=== PATIENT | male | born 1990 | race Caucasian/White ===

== ENCOUNTER 2017-04-08 10:40 | Emergency (ER) | payer BC ==
--- NOTE | 2017-04-08 11:24 | EDM.PDOC ---
ED HPI GENERAL MEDICAL PROBLEM - General Chief Complaint: Eye Problems Stated Complaint: IRRATED EYE Time Seen by Provider: 04/08/17 11:07 Source of Information: Reports: Patient History Limitations: Reports: No Limitations - History of Present Illness INITIAL COMMENTS - FREE TEXT/NARRATIVE: Presents reporting a infection in his medial left lower eyelid. He states it's been irritated for about a week but now it is swollen and tender. No vision problems left eye Pain Score (Numeric/FACES): 5 - Related Data Allergies Allergy/AdvReac Type Severity Reaction Status Date / Time Sulfa (Sulfonamide Allergy Cannot Verified 04/08/17 10:48 Antibiotics) Remember Home Meds: Home Meds Albuterol [Take Home: Albuterol 6.7 GM, 1 INH Pack] 0 packet INH 04/08/17 [ History] Fexofenadine [Katie] 0 mg PO DAILY 04/08/17 [History] Candido/Polymyx B Sulf/Dexameth [Lehnoh-Idnhv-Cluohijm Eye Drop] 2 drop OP QID #1 bottle 04/08/17 [Rx] atoMOXetine HCl [Strattera] 60 mg PO DAILY 04/08/17 [History] Past Medical History - Past Health History Medical/Surgical History: Denies Medical/Surgical History Respiratory History: Reports: Asthma Psychiatric History: Reports: ADHD Social & Family History - Family History Family Medical History: Noncontributory - Tobacco Use Smoking Status *Q: Never Smoker - Recreational Drug Use Recreational Drug Use: No ED ROS GENERAL - Review of Systems Review Of Systems: ROS reveals no pertinent complaints other than HPI. ED EXAM GENERAL W FULL EYE - Physical Exam Exam: See Below Exam Limited By: No Limitations General Appearance: Alert Eye Exam: Bilateral Eye: EOMI, PERRL Visual Acuity (R) 20/: 20 Visual Acuity (L) 20/: 40 With Correction: No Eyelids: Left: Stye (medial) Conjunctiva & Sclera: Bilateral: Normal Appearance Cornea Exam: Bilateral: Normal Appearance Extraocular Movements: Bilateral: Intact Pupils: Normal Accommodation Pupillary Size: Bilateral: 4 mm Pupillary Reaction: Bilateral: Brisk Ears: Normal External Exam Nose: Normal Inspection Throat/Mouth: Normal Inspection Head: Atraumatic, Normocephalic Neck: Normal Inspection Respiratory/Chest: No Respiratory Distress Cardiovascular: Normal Peripheral Pulses GI/Abdominal: Soft Neurological: Alert, Oriented Psychiatric: Normal Affect, Normal Mood Skin Exam: Warm, Dry, Intact, Normal Color, No Rash Lymphatic: No Adenopathy Course - Vital Signs Last Recorded V/S: Last Vital Signs Temp 36.6 C 04/08/17 10:52 Pulse 90 04/08/17 10:52 Resp 18 04/08/17 10:52 BP 129/75 04/08/17 10:52 Pulse Ox 96 04/08/17 10:52 Departure - Departure Time of Disposition: 11:22 Disposition: Home, Self-Care 01 Condition: Good Clinical Impression: Hordeolum externum left lower eyelid - Discharge Information Referrals: PCP,None [Primary Care Provider] - [facility] [Outside] Forms: ED Department Discharge Additional Instructions: 1. Warm moist compresses every 4 hours while awake. 2. Eye drops to left eye--2 drops every 4 hours while awake. There is no conclusive evidence that antibiotic drops help the condition. 3. Follow up with ophthalmology if symptoms worsen or do not improve as expected.
== END 2017-04-08 11:30 | disposition home or self-care (01) ==
LOC: MW.ED 10:40
CPT/HCPCS: 99283

== ENCOUNTER 2017-04-09 05:39 | Emergency (ER) | payer BC ==
[2017-04-09] MEDS ORDERED: Sodium Chloride 0.9% 2.5 ML Syringe FLUSH PRN (05:51)
[2017-04-09] MEDS ORDERED: Pantoprazole 40 MG Vial IVPUSH ONE (05:51)
[2017-04-09] MEDS ORDERED: Ondansetron 4 MG/2 ML SDV IVPUSH ONE (05:51)
[2017-04-09] MEDS ORDERED: Sodium Chloride 0.9% 10 ML Syringe FLUSH PRN (05:51)
[2017-04-09] MEDS ORDERED: Alum Hydrox/Mag Hydrox/Simeth 15 ML, Metoclopramide 5 MG, Lidocaine 2% 5 ML PO ONE ×3 (05:51)
[2017-04-09] MEDS ORDERED: Sodium Chloride 0.9% 1,000 ML IV ONE (05:51)
--- NOTE | 2017-04-09 05:52 | EDM.PDOC ---
ED HPI GENERAL MEDICAL PROBLEM - General Chief Complaint: Abdominal Pain Stated Complaint: ABDOMINAL PAIN Time Seen by Provider: 04/09/17 05:46 - History of Present Illness INITIAL COMMENTS - FREE TEXT/NARRATIVE: HISTORY AND PHYSICAL: History of present illness: The patient is a healthy 26-year-old male with a history of ADHD who was seen here yesterday morning with complaints of a stye to his left eye for which he was treated and represents via EMS with epigastric pain that started at 3 AM. The patient states that last evening he felt fine and ate his normal meals and had no issues with pain prior to going to sleep and then became restless around 3 AM because of the discomfort which he describes in the epigastric area and radiating down the middle of his abdomen to his belly button. The patient did not localize right or left and it was associated with some nausea but no vomiting and no diarrhea. The patient says that at 4 AM it worsened and he called the ambulance to come here. He did not try any duup-ejz-hoznugc antacids but did try Advil PM. Patient a bowel movement yesterday that was normal without black or blood and he has not had diarrhea or constipation. He has no GI cardiac or pulmonary history and has no surgical history. The patient denies any history of food intolerance and did not eat anything new last evening. Please note that the pain does not radiate to his chest, his flanks or his back and it is not associated with diaphoresis shortness of breath or chest pain. Review of systems: As per history of present illness and below otherwise all systems reviewed and negative. Past medical history: As per history of present illness and as reviewed below otherwise noncontributory. Surgical history: As per history of present illness and as reviewed below otherwise noncontributory. Social history: No reported history of drug or alcohol abuse. Family history: As per history of present illness and as reviewed below otherwise noncontributory. Physical exam: Gen.: Well-developed well-nourished male who is nontoxic and speaking clearly in the ED. Vital signs of been reviewed by me. HEENT: Atraumatic, normocephalic, pupils reactive, patient has a visible hordeolum at the right lower eyelid surrounding erythema but no gross swelling is appreciated, negative for conjunctival pallor or scleral icterus, mucous membranes moist, throat clear, neck supple, nontender, trachea midline. Lungs: Clear to auscultation, breath sounds equal bilaterally, chest nontender. Heart: S1S2, regular, negative for clicks, rubs, or JVD. Abdomen: Soft, nondistended, mildly tender on deep palpation in the epigastrium and just below in the midline which does not localize right or left, bowel sounds are normoactive and there is no tympany on percussion, Negative for masses or hepatosplenomegaly. Negative for costovertebral tenderness. Pelvis: Stable nontender. Genitourinary: Deferred. Rectal: Deferred. Extremities: Atraumatic, negative for cords or calf pain. Neurovascular unremarkable. Neuro: Awake, alert, oriented. Cranial nerves II through XII unremarkable. Cerebellum unremarkable. Motor and sensory unremarkable throughout. Exam nonfocal. Diagnostics: EKG CBC CMP amylase lipase abdominal x-rays Therapeutics: IV fluids protonic Zofran GI cocktail Patient and are aware of testing care results and care plan for home. Patient is currently pain-free and I have strongly advised avoidance of fatty foods fast foods and spicy foods alcohol and caffeine. The patient's tells me that they're from [place] and they're going home today so they will follow-up with their provider in [place] and I will still give him referral information here. I cautioned on reasons to return to the ED Impression: Epigastric abdominal pain stable Definitive disposition and diagnosis as appropriate pending reevaluation and review of above. abdominal Pain Score (Numeric/FACES): 0 - Related Data Allergies Allergy/AdvReac Type Severity Reaction Status Date / Time Sulfa (Sulfonamide Allergy Cannot Verified 04/08/17 10:48 Antibiotics) Remember Home Meds: Home Meds Albuterol [Take Home: Albuterol 6.7 GM, 1 INH Pack] 0 packet INH ASDIRECTED [History] Fexofenadine [Katie] 0 mg PO DAILY 04/08/17 [History] Candido/Polymyx B Sulf/Dexameth [Qdxqjy-Udtrl-Yovzrcxa Eye Drop] 2 drop OP QID #1 bottle 04/08/17 [Rx] atoMOXetine HCl [Strattera] 60 mg PO DAILY 04/08/17 [History] Fluticasone/Salmeterol [Advair 250-50 Diskus] 1 each IH 04/09/17 [History] Past Medical History - Past Health History Medical/Surgical History: Denies Medical/Surgical History Respiratory History: Reports: Asthma Psychiatric History: Reports: ADHD Social & Family History - Family History Family Medical History: Noncontributory - Tobacco Use Smoking Status *Q: Never Smoker - Recreational Drug Use Recreational Drug Use: No ED ROS GENERAL - Review of Systems Review Of Systems: ROS reveals no pertinent complaints other than HPI. ED EXAM, GENERAL - Physical Exam Exam: See Below (See dictation) Course - Vital Signs Last Recorded V/S: Last Vital Signs Temp 36.1 C 04/09/17 05:49 Pulse 64 04/09/17 06:26 Resp 17 04/09/17 06:26 BP 130/73 04/09/17 06:26 Pulse Ox 96 04/09/17 06:26 - Orders/Labs/Meds Orders: Active Orders 24 hr Category Date Time Status EKG Documentation Completion [RC] STAT Care 04/09/17 05:52 Active Abdomen 2V AP Flat Upright [CR] Stat Exams 04/09/17 05:55 Taken Sodium Chloride 0.9% [Normal Saline] 1,000 ml Med 04/09/17 05:51 Active IV STAT Sodium Chloride 0.9% [Saline Flush] Med 04/09/17 05:51 Active 10 ml FLUSH ASDIRECTED PRN Sodium Chloride 0.9% [Saline Flush] Med 04/09/17 05:51 Active 2.5 ml FLUSH ASDIRECTED PRN Saline Lock Insert [OM.PC] Stat Oth 04/09/17 05:51 Ordered Medication Orders Sodium Chloride (Normal Saline) 1,000 mls @ 999 mls/hr IV STAT ONE Stop: 04/09/17 06:51 Last Admin: 04/09/17 05:59 Dose: 999 mls/hr Sodium Chloride (Saline Flush) 10 ml FLUSH ASDIRECTED PRN PRN Reason: Keep Vein Open Last Admin: 04/09/17 06:03 Dose: 10 ml Sodium Chloride (Saline Flush) 2.5 ml FLUSH ASDIRECTED PRN PRN Reason: Keep Vein Open Last Admin: 04/09/17 06:02 Dose: 2.5 ml Labs: Laboratory Tests 04/09/17 04/09/17 Range/Units 05:58 05:58 WBC 7.34 (4.0-11.0) K/uL RBC 4.95 (4.50-5.90) M/uL Hgb 15.0 (13.0-17.0) g/dL Hct 42.6 (38.0-50.0) % MCV 86.1 (80.0-98.0) fL MCH 30.3 (27.0-32.0) pg MCHC 35.2 (31.0-37.0) g/dL RDW Std Deviation 41.2 (28.0-62.0) fl RDW Coeff of Mita 13 (11.0-15.0) % Plt Count 191 (150-400) K/uL MPV 8.90 (7.40-12.00) fL Neut % (Auto) 44.1 L (48.0-80.0) % Lymph % (Auto) 42.1 H (16.0-40.0) % [place] % (Auto) 8.7 (0.0-15.0) % Eos % (Auto) 4.4 (0.0-7.0) % Baso % (Auto) 0.7 (0.0-1.5) % Neut # (Auto) 3.2 (1.4-5.7) K/uL Lymph # (Auto) 3.1 H (0.6-2.4) K/uL [place] # (Auto) 0.6 (0.0-0.8) K/uL Eos # (Auto) 0.3 (0.0-0.7) K/uL Baso # (Auto) 0.1 (0.0-0.1) K/uL Nucleated RBC % 0.0 /100WBC Nucleated RBCs # 0 K/uL Sodium 137 (136-146) mmol/L Potassium 3.9 (3.5-5.1) mmol/L Chloride 106 (98-110) mmol/L Carbon Dioxide 25 (21-31) mmol/L BUN 15 (6.0-23.0) mg/dL Creatinine 1.0 (0.6-1.5) mg/dL Est Cr Clr Drug Dosing 131.35 mL/min Estimated GFR (MDRD) > 60.0 ml/min Glucose 101 (60-110) mg/dL Calcium 9.0 (8.8-10.8) mg/dL Total Bilirubin 0.5 (0.1-1.5) mg/dL AST 14 (5-40) IU/L ALT 16 (8-54) IU/L Alkaline Phosphatase 47 (40-150) Total Protein 7.3 (6.0-8.0) g/dL Albumin 4.3 (3.5-5.0) g/dL Globulin 3.0 (2.0-3.5) g/dL Albumin/Globulin Ratio 1.4 (1.3-2.8) Amylase 30 (10-90) U/L Lipase 32 (7-80) U/L Meds: Medications Generic Name Dose Route Start Last Admin Trade Name Freq PRN Reason Stop Dose Admin Sodium Chloride 1,000 mls @ 999 mls/hr 04/09/17 05:51 04/09/17 05:59 Normal Saline IV 04/09/17 06:51 999 mls/hr STAT ONE Administration Sodium Chloride 10 ml 04/09/17 05:51 04/09/17 06:03 Saline Flush FLUSH 10 ml ASDIRECTED PRN Administration Keep Vein Open Sodium Chloride 2.5 ml 04/09/17 05:51 04/09/17 06:02 Saline Flush FLUSH 2.5 ml ASDIRECTED PRN Administration Keep Vein Open Discontinued Medications Generic Name Dose Route Start Last Admin Trade Name Freq PRN Reason Stop Dose Admin Al Hydroxide/Mg Hydroxide 15 0 ml 04/09/17 05:51 04/09/17 06:06 ml/ Metoclopramide HCl 5 mg/ PO 04/09/17 05:52 25 each Lidocaine HCl 5 ml ONETIME ONE Administration Ondansetron HCl 4 mg 04/09/17 05:51 04/09/17 06:01 Zofran IVPUSH 04/09/17 05:52 4 mg ONETIME ONE Administration Pantoprazole Sodium 40 mg 04/09/17 05:51 04/09/17 06:03 Protonix Iv IVPUSH 04/09/17 05:52 40 mg .BOLUS ONE Administration Departure - Departure Time of Disposition: 06:47 Disposition: Home, Self-Care 01 Condition: Good Clinical Impression: Epigastric abdominal pain - Discharge Information Referrals: PCP,None [Primary Care Provider] - Forms: ED Department Discharge Additional Instructions: The following information is given to patients seen in the emergency department who are being discharged to home. This information is to outline your options for follow-up care. We provide all patients seen in our emergency department with a follow-up referral. The need for follow-up, as well as the timing and circumstances, are variable depending upon the specifics of your emergency department visit. If you don't have a primary care physician on staff, we will provide you with a referral. We always advise you to contact your personal physician following an emergency department visit to inform them of the circumstance of the visit and for follow-up with them and/or the need for any referrals to a consulting specialist. The emergency department will also refer you to a specialist when appropriate. This referral assures that you have the opportunity for followup care with a specialist. All of these measure are taken in an effort to provide you with optimal care, which includes your followup. Under all circumstances we always encourage you to contact your private physician who remains a resource for coordinating your care. When calling for followup care, please make the office aware that this follow-up is from your recent emergency room visit. If for any reason you are refused follow-up, please contact the [facility] emergency department at and ask to speak to the emergency department charge nurse. [facility] Primary care- Internal Medicine and Family [facility] [address] [place] [address] [id number] [facility] Specialty Care-General Surgery Professional Building [address] [place] [id number] Please try to avoid spicy foods fatty foods fast foods and junk foods as well as caffeinated products and alcohol. Please take Prevacid as directed. Please call and follow-up with one of our clinic physicians for further care and evaluation. Return to ER as needed and as discussed. You may also add over-the- counter Mylanta to assist with any discomfort that you have before or after eating. - My Orders Last 24 Hours: My Active Orders 04/09/17 05:51 Sodium Chloride 0.9% [Normal Saline] 1,000 ml IV STAT Sodium Chloride 0.9% [Saline Flush] 10 ml FLUSH ASDIRECTED PRN Sodium Chloride 0.9% [Saline Flush] 2.5 ml FLUSH ASDIRECTED PRN Saline Lock Insert [OM.PC] Stat 04/09/17 05:52 EKG Documentation Completion [RC] STAT 04/09/17 05:55 Abdomen 2V AP Flat Upright [CR] Stat - Assessment/Plan Last 24 Hours: My Active Orders 04/09/17 05:51 Sodium Chloride 0.9% [Normal Saline] 1,000 ml IV STAT Sodium Chloride 0.9% [Saline Flush] 10 ml FLUSH ASDIRECTED PRN Sodium Chloride 0.9% [Saline Flush] 2.5 ml FLUSH ASDIRECTED PRN Saline Lock Insert [OM.PC] Stat 04/09/17 05:52 EKG Documentation Completion [RC] STAT 04/09/17 05:55 Abdomen 2V AP Flat Upright [CR] Stat
[2017-04-09 06:31] LABS: CHLORIDE,CL 106 mmol/L (98-110); SODIUM,NA 137 mmol/L (136-146)
[2017-04-09 07:24] VITALS: BP 115/71
--- NOTE | 2017-04-10 12:22 | CR ---
EXAM DATE: 04/09/17 PATIENT'S AGE: 26 Patient: LENNY JIMENES Facility: [place], [place] Site . Site : 1990 Study: XRay Abdomen [id number]/16/2017 6:26:36 AM Ordering Physician: Alin Wilson Final Report: INDICATION: Upper abdominal pain with nausea. TECHNIQUE: Upright and supine views of the abdomen, total of 4 images. IMPRESSION : The bowel gas pattern is nonobstructive. Upright exam shows no free air under the hemidiaphragms. Moderate volume of colonic stool. No pathologic abdominal calcifications. Dictated by Chele Walsh MD @ 04/09/2017 6:29:04 AM Dictated by: Chele Walsh MD @ 04/09/2017 06:29:12 (Electronic Signature) Report Signed by Proxy. [email or web address]
== END 2017-04-09 07:22 | disposition home or self-care (01) ==
LOC: MW.ED 05:39
DX: R10.13 Epigastric pain (principal); J45.909 Unspecified asthma, uncomplicated; Z88.2 Allergy status to sulfonamides; Z79.899 Other long term (current) drug therapy
CPT/HCPCS: 36415; 74020; 80053; 82150; 83690; 85025; 93005; 96361; 96374; 96375; 99284; A9270; C9113; J2405; J7040